=== PATIENT | male | born 1975 | race Caucasian/White ===

== ENCOUNTER 2017-02-27 20:38 | Emergency (ER) | payer OTHER ==
[2017-02-27 20:59] VITALS: BP 127/72
[2017-02-27] MEDS ORDERED: DEXAMETHASONE SOD PHOS INJ 10 MG/1 ML VIAL IM ONE (21:46)
--- NOTE | 2017-02-27 21:46 | ER Document Report ---
ED Skin Rash/Insect Bite/Abscs - General Mode of Arrival: Ambulatory Information source: Patient - HPI Patient complains to provider of: Skin rash/lesion Onset: Other - 02/22/2017 Onset/Duration: Gradual, Worse Quality of rash: Itchy - General Chief Complaint: Rash Stated Complaint: POSSIBLE RASH Notes: Patient is a 42-year-old male presenting to the emergency department concerned of poison allyssa on his upper and lower extremities as well as right next to his eye. Patient states he has history of having poison allyssa as a kid, but not recently. Patient states he thinks he got it from mowing his lawn 02/22/2017. Patient states that he was mostly worried about his eye swelling. (HERMES BERNARD) Past Medical History - General Information source: Patient - Social History Smoking Status: Unknown if Ever Smoked Chew tobacco use (# tins/day): No Frequency of alcohol use: None Drug Abuse: None Family History: Reviewed & Not Pertinent Review of Systems - Review of Systems Constitutional: No symptoms reported EENT: No symptoms reported Cardiovascular: No symptoms reported Respiratory: No symptoms reported Gastrointestinal: No symptoms reported Genitourinary: No symptoms reported Male Genitourinary: No symptoms reported Musculoskeletal: No symptoms reported Skin: See HPI, Other - Possible poison allyssa on extremities and face Hematologic/Lymphatic: No symptoms reported Neurological/Psychological: No symptoms reported -: Yes All other systems reviewed and negative Physical Exam - General General appearance: Appears well, Alert - HEENT Head: Normocephalic, Atraumatic Eyes: Normal Pupils: PERRL - Respiratory Respiratory status: No respiratory distress Chest status: Nontender Breath sounds: Normal Chest palpation: Normal - Cardiovascular Rhythm: Regular Heart sounds: Normal auscultation Murmur: No - Abdominal Inspection: Normal Distension: No distension Bowel sounds: Normal Tenderness: Nontender Organomegaly: No organomegaly - Back Back: Normal, Nontender - Extremities General upper extremity: Nontender General lower extremity: Nontender - Neurological Neuro grossly intact: Yes Cognition: Normal Orientation: AAOx4 Jose Elias Coma Scale Eye Opening: Spontaneous Jose Elias Coma Scale Verbal: Oriented [place] Coma Scale Motor: Obeys Commands Jose Elias Coma Scale Total: 15 Speech: Normal - Psychological Associated symptoms: Normal affect, Normal mood - Skin Skin Temperature: Warm Skin Moisture: Dry Skin irregularity: other - Contact dermatitis over left lateral eye, upper and lower extremities, not secondarily infected Course - Re-evaluation Re-evalutation: 02/28/17 00:18 Patient presents emergency department with exposure to poison allyssa on his hands and trunk. It's about a week ago he noticed that when he was mowing the lawn did not change his clothing tonight he grabbed something that had been warned not been washed and touched his eye. His eye itself is okay at the lateral aspect of his eyelids movement of the contact dermatitis the eye itself is clean dry and intact he has some nonspecific contact dermatitis on his upper extremities and lower extremities not secondarily infected. When ahead and gave him a shot of Decadron oral prednisone told to wash any clothing and has been contact with given with primary care physician for follow-up and discuss reasons for ED return sooner (LAMONTE DE) - Vital Signs Vital signs: Temp Pulse Resp BP Pulse Ox 98.4 F 82 16 127/72 H 99 02/27/17 20:57 02/27/17 20:57 02/27/17 20:57 02/27/17 20:57 02/27/17 20:57 Discharge - Discharge Clinical Impression: Poison allyssa dermatitis Condition: Stable Disposition: HOME, SELF-CARE Instructions: Contact Dermatitis ([facility]) Additional Instructions: Poison Allyssa Poison allyssa and poison oak can cause an itchy rash. This is called contact dermatitis. It's an allergy to an oil in the plant's leaves. The oil can be spread from clothing to skin, from pets to humans, or from one spot on the body to another. Washing thoroughly with soap immediately after exposure can prevent the rash. (Clothing should be washed as well.) If the oil is not removed, an itchy rash develops a few days after the exposure. Blisters may develop. Two to three weeks may be required for healing. Generally, treatment consists of: (1) an immediate thorough washing with soap to remove the oil, (2) application of a cortisone cream, and (3) antihistamines for itching. If the reaction is particularly severe, oral cortisone medicine may be required. If there are oozing areas, these can be soaked in epsom salts or Koby's solution. Call the doctor if the rash worsens despite treatment, or if signs of infection occur such as spreading redness, red streaks, swollen glands, swelling , or fever. Prescriptions: Prednisone [Deltasone 20 mg Tablet] 3 tab PO DAILY 5 Days Referrals: [facility] [Provider Group] - Follow up in 3-5 days Scribe Attestation: 02/28/17 00:19 I personally performed the services described in the documentation reviewed the documentation recorded by my scribe in my presence and it accurately and completely records my words and actions (LAMONTE DE) Scribe Documentation - Scribe Written by Scribe:: Hermes Bernard 02/27/2017 2246 acting as scribe for :: Justin
== END 2017-02-27 21:59 | disposition home or self-care (01) ==
LOC: ER 20:38
DX: L23.7 Allergic contact dermatitis due to plants, except food (principal)
CPT/HCPCS: 99282; 96372; J1100